=== PATIENT | female | born 1995 | race Caucasian/White ===

== ENCOUNTER 2019-02-26 04:13 | Emergency (ER) | payer BC ==
[2019-02-26] MEDS ORDERED: KETOROLAC TROMETHAMINE 60 MG/2 ML SDV IM ONE (04:48)
--- NOTE | 2019-02-26 04:51 | ER Document Report ---
ED General - General Chief Complaint: Shoulder Injury Stated Complaint: SHOULDER PAIN Time Seen by Provider: 02/26/19 04:30 Primary Care Provider: ARNIE NOLEN MD [ACTIVE STAFF] - Follow up in 1 week (orthopedic surgery ) Notes: Patient is a 24-year-old female previously healthy that presents to the emergency department for chief complaint of right shoulder pain and injury. Patient states that she was walking backwards and tripped over a lawn chair, and awkwardly landed on her right shoulder. She is been having pain since then, occurred around 2 AM, she currently rates her pain as a 6 out of 10 describes it as a throbbing aching sensation, worse with moving her shoulder. She states she felt a popping sensation when this occurred. Denies any head or neck injury, denies loss of consciousness. Denies any numbness, weakness or tingling in her extremities. No prior injury to that shoulder in the past and no prior surgery. Past Medical History: Denies chronic medical conditions Past Surgical History: Denies surgical history Social History: Denies tobacco, alcohol or drug use. Family History: Reviewed and noncontributory for presenting illness Allergies: Reviewed, see documented allergy list. REVIEW OF SYSTEMS: Other than noted above, the 12 point review of systems was reviewed with the patient and were negative, all pertinent findings are included in the HPI. PHYSICAL EXAMINATION: Vital signs reviewed, nursing noted reviewed. GENERAL: Well-appearing, well-nourished and in no acute distress. HEAD: Atraumatic, normocephalic. EYES: Eyes appear normal, sclera anicteric, conjunctiva are normal. ENT: Moist mucous membranes. NECK: Normal range of motion, supple without lymphadenopathy LUNGS: Breath sounds clear to auscultation bilaterally and equal. No wheezes rales or rhonchi. HEART: Regular rate and rhythm without murmurs EXTREMITIES: The right shoulder, is tender to palpate, anteriorly, and along the AC joint, there is no step-off or deformity, there is pain with range of motion particularly with internal rotation, however patient does have fairly good active and passive range of motion, but she does have pain. No gross deformity. Sensation intact distally, pulses intact distally, the rest of the patient's extremity exam is grossly unremarkable. NEUROLOGICAL: No focal neurological deficits. Moves all extremities spontaneously Motor and sensory grossly intact on exam. PSYCH: Normal mood, normal affect. SKIN: Warm, Dry, normal turgor, no rashes or lesions noted on exposed skin TRAVEL OUTSIDE OF THE [place] IN LAST 30 DAYS: No - Related Data Allergies/Adverse Reactions: No Known Allergies Allergy (Verified 02/26/19 04:52) Past Medical History - Social History Smoking Status: Never Smoker Family History: Reviewed & Not Pertinent Physical Exam - Vital signs Vitals: Temp Pulse Resp BP Pulse Ox 98.1 F 81 16 94/41 L 98 02/26/19 04:20 02/26/19 04:20 02/26/19 04:20 02/26/19 04:20 02/26/19 04:20 Course - Re-evaluation Re-evalutation: Patient seen and examined, vital signs reviewed, patient appeared well on exam, complaining of some shoulder pain, she did have some tenderness to palpation, but overall her good range of motion no deformity, x-ray obtained demonstrated the shoulder and the glenoid, no dislocation, and no fracture identified, patient was placed in a sling, and given Toradol, advised [id number] medication and ice therapy at home, patient was agreeable, she is advised if her symptoms are not improving to follow-up with orthopedic surgery. Shoulder X-Ray 02/26/19 04:31 IMPRESSION: No acute findings. - Vital Signs Vital signs: Temp Pulse Resp BP Pulse Ox 98.1 F 81 16 94/41 L 98 02/26/19 04:20 02/26/19 04:20 02/26/19 04:20 02/26/19 04:20 02/26/19 04:20 Procedures - Immobilization Right Shoulder Pre-Proc Neuro Vasc Exam: Normal Immobilizer type: Sling Performed by: PCT Post-Proc Neuro Vasc Exam: Normal Alignment checked and good: Yes Discharge - Discharge Clinical Impression: Right shoulder injury Qualifiers: Encounter type: initial encounter Qualified Code(s): S49.91XA - Unspecified injury of right shoulder and upper arm, initial encounter Condition: Stable Disposition: HOME, SELF-CARE Instructions: Shoulder Injury ([facility]) Additional Instructions: Please wear the sling only for comfort for the next 1 to 2 days, you may take [id number] medication for pain, such as acetaminophen/Tylenol, up to 1000 mg every 8 hours, you can also alternatively take Motrin/Advil/ibuprofen, 600 mg every 8 hours if needed for pain as well. What may help the most though is to apply ice or a warm compress for 20 minutes on 20 minutes off to your right shoulder, to help relieve any swelling and pain. If needed follow-up with your primary care physician, or an orthopedic surgeon if your symptoms are not improving over the next week. Referrals: ARNIE NOLEN MD [ACTIVE STAFF] - Follow up in 1 week (orthopedic surgery )
--- NOTE | 2019-02-26 05:08 | RADIOLOGY REPORT (SQ) ---
EXAM DESCRIPTION: XR SHOULDER 2 OR MORE VIEWS COMPLETED DATE/TME: 02/26/2019 04:31 CLINICAL HISTORY: 24 years Female, right shoulder injury COMPARISON: None. Findings: Bones, joints, and soft tissues of the RIGHT XR SHOULDER 3 VIEWS appear intact. IMPRESSION: No acute findings.
[2019-02-26 05:59] VITALS: BP 124/82
== END 2019-02-26 05:50 | disposition home or self-care (01) ==
LOC: ER 04:13
DX: S49.91XA Unspecified injury of right shoulder and upper arm, initial encounter (principal); M25.511 Pain in right shoulder; W17.89XA Other fall from one level to another, initial encounter
CPT/HCPCS: 99283; 96372; 73030; J1885